=== PATIENT | female | born 1980 | race African-American/Black ===

== ENCOUNTER → 2023-07-12 | Outpatient (CLI) | payer OTHER ==
[~2023-07-12] MED LIST: GASTROGRAFIN SOLUTION 30ML As Ordered ONE; ISOVUE-370 76% 100ML VIAL As Ordered ONE
== END ==
LOC: M RAD 11:55
PROVIDERS: ATTEND Family Medicine
DX: C7A.8 Other malignant neuroendocrine tumors (principal); R91.1 Solitary pulmonary nodule; J90 Pleural effusion, not elsewhere classified; D25.9 Leiomyoma of uterus, unspecified
CPT/HCPCS: 71260; 74177; Q9963; Q9967

== ENCOUNTER → 2023-07-21 | Outpatient (CLI) | payer OTHER ==
[~2023-07-21] MED LIST changes: -GASTROGRAFIN SOLUTION 30ML As Ordered ONE; +IRON65TA2 PO; -ISOVUE-370 76% 100ML VIAL As Ordered ONE; +PROHANCE 279.3MG/ML 15ML VIAL As Ordered ONE; +[UNRECOGNIZED DRUG - CODE] IJ
== END ==
LOC: EDSEX → M RAD 13:53 → EDUNIT# 14:30
PROVIDERS: ATTEND Family Medicine
DX: C7A.8 Other malignant neuroendocrine tumors (principal)
CPT/HCPCS: 70553; A9576

== ENCOUNTER → 2023-09-11 | Outpatient (CLI) | payer OTHER ==
[~2023-09-11] MED LIST changes: -PROHANCE 279.3MG/ML 15ML VIAL As Ordered ONE
== END ==
LOC: M PLARAD 15:03
PROVIDERS: ATTEND Internal Medicine Medical Oncology
DX: R91.1 Solitary pulmonary nodule (principal)

== ENCOUNTER → 2023-10-05 | Outpatient (CLI) | payer OTHER | LOC: M RAD 15:26 | PROVIDERS: ATTEND Obstetrics & Gynecology | DX: N97.9 Female infertility, unspecified (principal) ==

== ENCOUNTER → 2023-10-16 | Outpatient (CLI) | payer OTHER ==
[2023-10-16 16:24] LABS: HEMOGLOBIN A1c 5.7 % (4.0-6.0)
[2023-10-16 16:27] LABS: FOLLICLE STIMULATING HORMONE 8.8 mIU/ML; LUTEINIZING HORMONE 13.6 mIU/ML
[2023-10-16 16:28] LABS: PROLACTIN 10.73 NG/ML
[2023-10-16 16:30] LABS: FREE T4 0.77 NG/DL (0.89-1.76)
[2023-10-16 17:20] LABS: THYROID STIMULATING HORMONE 2.185 uIU/ML (0.55-4.78)
[2023-10-17 10:53] LABS: PROGESTERONE 8.95 NG/ML
[2023-10-18 23:07] LABS: DEHYDROEPIANDROSTERONE SULFATE 20.9 ug/dL (57.3-279.2); TESTOSTERONE FREE (DIRECT) 0.2 pg/mL (0.0-4.2)
== END ==
LOC: M LAB 14:57
PROVIDERS: ATTEND Obstetrics & Gynecology
DX: N97.9 Female infertility, unspecified (principal)

== ENCOUNTER → 2023-11-08 | Outpatient (CLI) | payer OTHER ==
[~2023-11-08] MED LIST changes: +ISOVUE-370 76% 100ML VIAL As Ordered ONE
== END ==
LOC: M RADPRO 12:14
PROVIDERS: ATTEND Obstetrics & Gynecology
DX: N97.9 Female infertility, unspecified (principal)
CPT/HCPCS: 58340; 74740; Q9967